=== PATIENT | female | born 1955 | race Caucasian/White ===

== ENCOUNTER → 2019-02-08 | Outpatient (CLI) | payer BC ==
--- NOTE | 2019-02-11 09:34 | PCVCIMAG ---
APPROVED REPORT Study performed: 02/08/2019 15:59:31 Exam: Stress Echocardiogram Indication: Abnormal ekg Patient Location: Echo lab Stress Nurse: Yolanda Elizabeth RN Status: routine Ht: 5 ft 5 in HR: 80 bpm BP: 110/ mmHg Rhythm: NSR Procedure The patient underwent an Exercise Stress Test using the Jamie Protocol. Blood pressure, heart rate, and EKG were monitored. An Echocardiogram was performed by instructional support technician in four stages in quad fashion. At peak stress, four selected images were obtained and placed side by side with resting images for comparison. Stress Test Details Stress Test: Exercise stress testing was performed using a Jamie protocol. HR Resting HR: 80 bpmMax Heart Rate (APMHR): 155 bpm Max HR Achieved: 155 bpmTarget HR (85% APMHR): 131 bpm % of APMHR: 100 Recovery HR: 82 bpm HR response to stress: Normal HR response to stress BP Resting BP: 110/80 mmHg Max BP: 164/74 mmHg Recovery BP: 124/74 mmHg BP response to stress: Normal blood pressure response to stress. ECG Resting ECG: Sinus Rhythm Stress ECG: Sinus Rhythm Recovery ECG: Sinus Rhythm Clinical Reason for Termination: Maximal effort Exercise duration: 9 min sec Highest Stage Achieved: Stage 3: 3.4 mph at 14% grade. Exercise capacity: 10.10 METs Overall Exercise Capacity for Age: Normal Stress ECG Conclusion 1. subjectively negative for ischemia 2. electrocardiographically negative for ischemia 3. satisfactory functional capacity 4. no induce arrhythmia Pre-Stress Echo The resting Echocardiogram showed normal left ventricular contractility with an estimated Ejection Fraction of about 55-60%. Normal wall motion in all segments on baseline images. Post-Stress Echo The stress Echocardiogram showed normal left ventricular contractility with an estimated Ejection Fraction of about 60-65%. Normal augmentation of wall motion in all segments on post stress images. Clinical No clinical or ECG evidence for ischemia. Conclusion Clinical Response: Non-ischemic Exercise Capacity: Average Stress ECG Response: Non-ischemic Stress Echo Images: Non-ischemic The left ventricle is normal in size and wall thickness in both the rest and stress images. No significant valvular abnormalities. 1. low risk study Other Information Study Quality: Adequate <Conclusion> The left ventricle is normal in size and wall thickness in both the rest and stress images. No significant valvular abnormalities. 1. low risk study
== END | disposition home or self-care (01) ==
LOC: PCVCIMAG 15:28
PROVIDERS: ATTEND Internal Medicine
DX: R94.31 Abnormal electrocardiogram [ECG] [EKG] (principal); E78.5 Hyperlipidemia, unspecified; M81.0 Age-related osteoporosis without current pathological fracture; Z90.09 Acquired absence of other part of head and neck; Z80.1 Family history of malignant neoplasm of trachea, bronchus and lung
CPT/HCPCS: 93325; 93351